=== PATIENT | male | born 1985 | race Caucasian/White ===

== ENCOUNTER 2021-02-23 13:25 | Emergency (ER) | payer MEDICAID ==
[2021-02-23 14:18] LABS: BILIRUBIN 1+ mg/dL (NEGATIVE); BLOOD 3+ Ery/uL (NEGATIVE); CLARITY CLEAR (CLEAR); COLOR YELLOW (YELLOW); GLUCOSE (U) NORMAL (NORMAL); LEUKOCYTES TRACE Leu/uL (NEGATIVE); NITRITE NEGATIVE (NEGATIVE); PROTEIN TRACE (LOW) mg/dL (NEGATIVE); SPECIFIC GRAVITY >=1.030 (1.001-1.030); pH 5.5 (5.0-9.0)
[2021-02-23 14:19] LABS: BASOPHIL 0.1 % (0-2); EOSINOPHIL 0.4 % (0-5); HCT 44.4 % (42.0-52.0); HGB 14.9 g/dl (13.2-18.0); LYMPHOCYTE 7.2 % (15-48); MCH 31.5 pg (25.0-31.0); MCHC 33.6 g/dL (32.0-36.0); MCV 93.9 fL (78.0-100.0); MONOCYTE 9.6 % (0-12); MPV 9.9 fL (6.0-9.5); NRBC 0; PLT 221 K/uL (150-400); RBC 4.73 M/uL (4.70-6.00); RDW 12.3 % (11.5-14.0); WBC 14.8 K/uL (4.0-10.5)
[2021-02-23 14:26] LABS: BUN/CREAT RATIO (CALC) 13.1 RATIO; CREATININE 0.99 mg/dL (0.67-1.17)
[2021-02-23 14:27] LABS: BACTERIA 1+; MUCOUS TRACE; URINARY RBC 20-50
[2021-02-23] MEDS ORDERED: PERCOCET 7.5/321 TAB PO (17:46)
== END 2021-02-23 17:58 | disposition home or self-care (01) ==
LOC: FER 13:25
PROVIDERS: Nurse Practitioner Family
DX: N13.2 Hydronephrosis with renal and ureteral calculous obstruction (principal)
CPT/HCPCS: 36415; 80048; 81001; 85025; J1885; J2270; J2405; J7030

== ENCOUNTER 2021-03-09 05:38 | Emergency (ER) | payer OTHER ==
[~2021-03-09 05:38] MED LIST: PERCOCET 7.5/321 TAB PO
[2021-03-09 06:11] LABS: BASOPHIL 0.5 % (0-2); EOSINOPHIL 2.8 % (0-5); HCT 43.5 % (42.0-52.0); HGB 14.3 g/dl (13.2-18.0); LYMPHOCYTE 34.5 % (15-48); MCH 30.9 pg (25.0-31.0); MCHC 32.9 g/dL (32.0-36.0); MONOCYTE 6.4 % (0-12); MPV 9.3 fL (6.0-9.5); NEUTROPHIL 55.5 % (41-80); NRBC 0; PLT 375 K/uL (150-400); RBC 4.63 M/uL (4.70-6.00); RDW 12.5 % (11.5-14.0); WBC 6.1 K/uL (4.0-10.5)
[2021-03-09 06:30] LABS: BILIRUBIN NEGATIVE (NEGATIVE); BLOOD 3+ Ery/uL (NEGATIVE); CLARITY CLOUDY (CLEAR); COLOR YELLOW (YELLOW); GLUCOSE (U) NORMAL (NORMAL); LEUKOCYTES NEGATIVE Leu/uL (NEGATIVE); NITRITE NEGATIVE (NEGATIVE); PROTEIN TRACE (LOW) mg/dL (NEGATIVE); SPECIFIC GRAVITY 1.025 (1.001-1.030); UROBILINOGEN 0.2 mg/dL (0.2-1.0); pH 6.5 (5.0-9.0)
[2021-03-09 06:37] LABS: BUN/CREAT RATIO (CALC) 15.6 RATIO; CREATININE 0.77 mg/dL (0.67-1.17); POTASSIUM 3.4 mmol/L (3.5-5.1)
[2021-03-09 06:52] LABS: URINARY RBC TNTC
[2021-03-09 06:53] LABS: SQUAMOUS EPITHELIAL CELLS RARE
== END 2021-03-09 10:00 | disposition home or self-care (01) ==
LOC: FER 05:38
PROVIDERS: Emergency Medicine Emergency Medical Services
DX: N20.1 Calculus of ureter (principal); Z87.442 Personal history of urinary calculi
CPT/HCPCS: 36415; 80048; 81001; 85025; 87088; 96372; 99284; J1170; J1885

== ENCOUNTER 2021-06-08 12:06 | Emergency (ER) | payer OTHER ==
[2021-06-08 13:05] LABS: BASOPHIL 0.6 % (0-2); EOSINOPHIL 3.7 % (0-5); HCT 44.4 % (42.0-52.0); HGB 14.9 g/dl (13.2-18.0); LYMPHOCYTE 29.5 % (15-48); MCH 31.8 pg (25.0-31.0); MCHC 33.6 g/dL (32.0-36.0); MCV 94.9 fL (78.0-100.0); MONOCYTE 8.9 % (0-12); MPV 9.1 fL (6.0-9.5); NRBC 0; PLT 301 K/uL (150-400); RBC 4.68 M/uL (4.70-6.00); RDW 12.9 % (11.5-14.0); WBC 6.3 K/uL (4.0-10.5)
[2021-06-08 13:16] LABS: BILIRUBIN NEGATIVE (NEGATIVE); BLOOD TRACE-INTACT Ery/uL (NEGATIVE); CLARITY CLEAR (CLEAR); COLOR YELLOW (YELLOW); GLUCOSE (U) NORMAL (NORMAL); LEUKOCYTES NEGATIVE Leu/uL (NEGATIVE); NITRITE NEGATIVE (NEGATIVE); PROTEIN NEGATIVE (NEGATIVE); UROBILINOGEN 0.2 mg/dL (0.2-1.0); pH 6.5 (5.0-9.0)
[2021-06-08 13:19] LABS: CORONAVIRUS 2019 SARS-COV-2 NEGATIVE (NEGATIVE); INFLUENZA A NAA NEGATIVE (NEGATIVE)
[2021-06-08 13:28] LABS: BACTERIA TRACE; URINARY RBC RARE
[2021-06-08 13:33] LABS: BUN/CREAT RATIO (CALC) 8.5 RATIO; CREATININE 0.82 mg/dL (0.67-1.17); POTASSIUM 3.9 mmol/L (3.5-5.1)
== END 2021-06-08 16:12 | disposition home or self-care (01) ==
LOC: FER 12:06
PROVIDERS: Nurse Practitioner Family
DX: S82.62XA Displaced fracture of lateral malleolus of left fibula, initial encounter for closed fracture (principal); Z87.891 Personal history of nicotine dependence; Z20.822 Contact with and (suspected) exposure to COVID-19; Z28.310 Unvaccinated for COVID-19
CPT/HCPCS: 36415; 73610; 80048; 81001; 85025; J2405; U0002

== ENCOUNTER 2021-06-14 22:03 | Emergency (ER) | payer SELFPAY ==
[2021-06-14 22:38] LABS: BASOPHIL 0.7 % (0-2); EOSINOPHIL 3.8 % (0-5); HCT 45.2 % (42.0-52.0); HGB 15.4 g/dl (13.2-18.0); LYMPHOCYTE 27.1 % (15-48); MCH 32.2 pg (25.0-31.0); MCHC 34.1 g/dL (32.0-36.0); MCV 94.4 fL (78.0-100.0); MONOCYTE 8.4 % (0-12); MPV 9.5 fL (6.0-9.5); NEUTROPHIL 59.8 % (41-80); NRBC 0; PLT 333 K/uL (150-400); RBC 4.79 M/uL (4.70-6.00); RDW 12.9 % (11.5-14.0); WBC 8.8 K/uL (4.0-10.5)
[2021-06-14 22:50] LABS: INR 1.06 (0.9-1.2); PROTHROMBIN TIME 13.2 SECONDS (11.8-13.4); PTT 26.7 SECONDS (24.4-34.7)
[2021-06-14 23:00] LABS: ALBUMIN 3.7 g/dL (3.4-5.0); BILIRUBIN - TOTAL 0.3 mg/dL (0.2-1.0); BUN/CREAT RATIO (CALC) 13.5 RATIO; CREATININE 0.89 mg/dL (0.67-1.17); GLOBULIN (CALCULATION) 3.9 g/dL; MAGNESIUM 1.8 mg/dL (1.8-2.4); POTASSIUM 3.9 mmol/L (3.5-5.1); TOTAL PROTEIN 7.6 g/dL (6.4-8.2)
== END 2021-06-15 00:15 | disposition home or self-care (01) ==
LOC: FER 22:03
PROVIDERS: Internal Medicine
DX: R07.89 Other chest pain (principal); R06.02 Shortness of breath
CPT/HCPCS: 36415; 71275; 80053; 83735; 84145; 84484; 85025; 85610; 85730; 93005; Q9967